=== PATIENT | female | born 1940 | race African-American/Black ===

== ENCOUNTER → 2021-01-28 | Outpatient (CLI) | payer OTHER ==
[~2021-01-28] VITALS: Ht 165.1 cm; Wt 103.9 kg
[~2021-01-28] MED LIST: ALLOPURINOL 10100 M3 PO; AMARYL4 MG OR; AMITRIPTYLINE H10 M1 PO; CENTRUM TABLET1 TAB OR; DEXILANT60 MG PO; FAMOTIDINE 20 M20 MG PO; FLAX OIL1000 MG OR; GLIPIZIDE 10 MG10 MG PO; GLUCOPHAGE XR500 MG OR; HYDROCHLOROTHIA25 M1 OR; HYDROCODON-ACE1 EAC7 PO; JANUVIA100 MG PO; KLOR-CON 10 ER10 MEQ OR; LEVEMIR100 UNIT/1 IM; LINZESS72 MCG PO; MECLIZINE HCL25 M1 OR; MYSOLINE50 MG PO; NEXIUM40 MG OR; NOLVADEX20 MG PO; SINGULAIR 10 MG10 MG PO; SPIRONOLACTONE50 MG PO; TOPROL XL25 MG OR; TOPROL XL25 MG PO; WARFARIN SODIUM6 MG PO
[2021-01-28 12:58] VITALS: BP 144/88
--- NOTE | 2021-01-28 13:18 | NUR ---
Pain Clinic Assessment: 1. History of Osteoarthritis: Not Applicable History of Rheumatoid Arthritis: Not Applicable 2. Height: 5 ft. 5 in. 165.1 cm. Weight: 229.0 lb. oz. 103.874 kg. Patient's BMI: 38.1 3. Vital Signs: BP: 144/88 Pulse: 73 Resp: 18 Temp: 02 Sat: 98 ECG Mon: 4. Pain Intensity: 7 5. Fall Risk: Dizziness: Y Needs help standing or walking: Y Fallen in the last 3 months: Y Fall risk comments: 6. Patient on Blood Thinner: Warfarin (Coumadin) 7. History of Hypertension: Y 8. Opioid Therapy greater than 6 weeks: Y Opiate Contract Signed: 9. Risk Assessment Tool Provided: 10. Functional Assessment Tool: LOW 11. Recreational Drug Use: Never Drug Type: Tobacco Use: Never Smoker Tobacco Type: Amount or Packs/day: How Many Years: Alcohol Use: No Frequency: Quant:
== END ==
LOC: PAIN 10:48
PROVIDERS: ATTEND Anesthesiology Pain Medicine
DX: M54.17 Radiculopathy, lumbosacral region (principal); R06.02 Shortness of breath; E66.9 Obesity, unspecified; E11.22 Type 2 diabetes mellitus with diabetic chronic kidney disease; N18.30 Chronic kidney disease, stage 3 unspecified; Z79.01 Long term (current) use of anticoagulants

== ENCOUNTER → 2021-02-04 | Outpatient (CLI) | payer OTHER ==
[~2021-02-04] VITALS: Ht 165.1 cm; Wt 91.6 kg
[2021-02-04 10:49] LABS: INR 0.96; PROTIME 10.5 Seconds (10.5-12.1)
[2021-02-04 11:01] VITALS: BP 156/79
--- NOTE | 2021-02-04 11:13 | NUR ---
Pain Clinic Assessment: 1. History of Osteoarthritis: Not Applicable History of Rheumatoid Arthritis: Not Applicable 2. Height: 5 ft. 5 in. 165.1 cm. Weight: 202.0 lb. oz. 91.627 kg. Patient's BMI: 33.6 3. Vital Signs: BP: 156/79 Pulse: 87 Resp: 20 Temp: 02 Sat: 100 ECG Mon: 4. Pain Intensity: 4 while sitting 5. Fall Risk: Dizziness: N Needs help standing or walking: Y Fallen in the last 3 months: N Fall risk comments: 6. Patient on Blood Thinner: Warfarin (Coumadin) 7. History of Hypertension: Y 8. Opioid Therapy greater than 6 weeks: Y Opiate Contract Signed: 9. Risk Assessment Tool Provided: 10. Functional Assessment Tool: LOW 11. Recreational Drug Use: Never Drug Type: Tobacco Use: Never Smoker Tobacco Type: Amount or Packs/day: How Many Years: Alcohol Use: No Frequency: Quant:
== END | disposition home or self-care (01) ==
LOC: PAIN 07:30
PROVIDERS: ATTEND Anesthesiology Pain Medicine
DX: M54.16 Radiculopathy, lumbar region (principal); G89.29 Other chronic pain; I12.9 Hypertensive chronic kidney disease with stage 1 through stage 4 chronic kidney disease, or unspecified chronic kidney disease; E11.22 Type 2 diabetes mellitus with diabetic chronic kidney disease; N18.30 Chronic kidney disease, stage 3 unspecified; J45.909 Unspecified asthma, uncomplicated; E66.01 Morbid (severe) obesity due to excess calories; Z98.890 Other specified postprocedural states; Z79.899 Other long term (current) drug therapy; Z79.01 Long term (current) use of anticoagulants; Z86.718 Personal history of other venous thrombosis and embolism; Z85.3 Personal history of malignant neoplasm of breast; Z68.38 Body mass index [BMI] 38.0-38.9, adult

== ENCOUNTER → 2021-07-22 | Outpatient (CLI) | payer OTHER ==
[~2021-07-22] VITALS: Ht 165.1 cm; Wt 86.2 kg
[~2021-07-22] MED LIST changes: +FUROSEMIDE 20 M20 MG PO
[2021-07-22 09:27] VITALS: BP 140/88
--- NOTE | 2021-07-22 09:28 | NUR ---
Pain Clinic Assessment: 1. History of Osteoarthritis: Not Applicable History of Rheumatoid Arthritis: Not Applicable 2. Height: 5 ft. 5 in. 165.1 cm. Weight: 190.0 lb. oz. 86.184 kg. Patient's BMI: 31.6 3. Vital Signs: BP: 140/88 Pulse: 80 Resp: 16 Temp: 02 Sat: 98 ECG Mon: 4. Pain Intensity: 10 5. Fall Risk: Dizziness: N Needs help standing or walking: Y Fallen in the last 3 months: N Fall risk comments: 6. Patient on Blood Thinner: Warfarin (Coumadin) 7. History of Hypertension: Y 8. Opioid Therapy greater than 6 weeks: Y Opiate Contract Signed: 9. Risk Assessment Tool Provided: low-0 10. Functional Assessment Tool: 11. Recreational Drug Use: Never Drug Type: Tobacco Use: Never Smoker Tobacco Type: Amount or Packs/day: How Many Years: Alcohol Use: No Frequency: Quant:
== END ==
LOC: PAIN 08:26
PROVIDERS: ATTEND Anesthesiology Pain Medicine
DX: M54.16 Radiculopathy, lumbar region (principal); Z79.899 Other long term (current) drug therapy

== ENCOUNTER → 2021-07-29 | Outpatient (CLI) | payer OTHER ==
[~2021-07-29] VITALS: Ht 165.1 cm; Wt 86.2 kg
[2021-07-29 13:34] VITALS: BP 141/61
--- NOTE | 2021-07-29 13:36 | NUR ---
Pain Clinic Assessment: 1. History of Osteoarthritis: Not Applicable History of Rheumatoid Arthritis: Not Applicable 2. Height: 5 ft. 5 in. 165.1 cm. Weight: 190.0 lb. oz. 86.184 kg. Patient's BMI: 31.6 3. Vital Signs: BP: 141/61 Pulse: 81 Resp: 14 Temp: 02 Sat: 98 ECG Mon: 4. Pain Intensity: 10 5. Fall Risk: Dizziness: N Needs help standing or walking: Y Fallen in the last 3 months: N Fall risk comments: 6. Patient on Blood Thinner: Warfarin (Coumadin) 7. History of Hypertension: Y 8. Opioid Therapy greater than 6 weeks: Y Opiate Contract Signed: 9. Risk Assessment Tool Provided: low-0 10. Functional Assessment Tool: 11. Recreational Drug Use: Never Drug Type: Tobacco Use: Never Smoker Tobacco Type: Amount or Packs/day: How Many Years: Alcohol Use: No Frequency: Quant:
[2021-07-29 14:25] LABS: INR 0.96; PROTIME 10.5 Seconds (10.5-12.1)
== END | disposition home or self-care (01) ==
LOC: PAIN 10:46
PROVIDERS: ATTEND Anesthesiology Pain Medicine
DX: M54.16 Radiculopathy, lumbar region (principal); G89.29 Other chronic pain; I10 Essential (primary) hypertension; Z98.890 Other specified postprocedural states; Z79.899 Other long term (current) drug therapy